=== PATIENT | female | born 1960 | race Caucasian/White ===

== ENCOUNTER 2017-01-22 03:52 | Inpatient (IN) | payer OTHER ==
[~2017-01-22] VITALS: Ht 177.8 cm; Wt 61.2 kg
[~2017-01-22 03:52] MED LIST: ACID CONTROL150 MG PO; CENTRUM WOMEN1 EACH PO; NICODERM CQ1 EAC2 TD
[2017-01-22 06:13] VITALS: BP 168/89
[2017-01-22 12:11] VITALS: BP 142/76
[2017-01-22 16:00] VITALS: BP 116/72
[2017-01-22 20:00] VITALS: BP 135/65
[2017-01-22 23:25] VITALS: BP 168/79
[2017-01-23 04:05] VITALS: BP 166/75
[2017-01-23 06:57] LABS: HEMATOCRIT 39.2 % (36.0-46.0); MCH 32.4 PG (29.0-34.0); MCHC 34.2 G/DL (30.0-36.0); MCV 94.9 FL (83-99); MEAN PLAT.VOLUME 9.7 uM^3 (9.5-12.4); PLATELET COUNT 229 K/uL (156-360); RBC DIS.WIDTH-CV 11.9 % (11.8-14.6); RBC DIS.WIDTH-SD 41.4 % (39-53); RED BLOOD COUNT 4.13 M/uL (3.80-5.20); WHITE BLOOD COUNT 8.3 K/uL (4.1-10.2)
[2017-01-23 07:21] LABS: ANION GAP 7 MEQ/L (2-14); CHLORIDE 106 MEQ/L (99-109); GFR ESTIMATE (CALCULATED) > 59 mL/min/; GLUCOSE 95 mg/dL (70-99); POTASSIUM 4.1 MEQ/L (3.7-5.4); SAMPLE HEMOLYSIS CHECK 0; SAMPLE ICTERIC CHECK 0; SAMPLE LIPEMIA CHECK 0; SODIUM 140 MEQ/L (136-147); UREA NITROGEN (BUN) 8 mg/dL (9-23)
[2017-01-23 07:40] VITALS: BP 154/76
[2017-01-23] MEDS ORDERED: TRAMADOL HCL50 MG PO (09:58)
== END 2017-01-23 10:32 | disposition home or self-care (01) | DRG 746 ==
LOC: ENRESERV 03:52 → 2SOUTH 05:19 → 2EAST 05:19 → 2SOUTH 09:15 → ENRESERV 11:39 → 2EAST 12:10 → 2SOUTH 12:28 → 2EAST 01-23 10:32
PROVIDERS: Obstetrics & Gynecology Gynecologic Oncology
DX: C51.8 Malignant neoplasm of overlapping sites of vulva (principal); C78.5 Secondary malignant neoplasm of large intestine and rectum; Z85.41 Personal history of malignant neoplasm of cervix uteri; Z80.1 Family history of malignant neoplasm of trachea, bronchus and lung; Z80.3 Family history of malignant neoplasm of breast
CPT/HCPCS: 36415; 80048; 85027; 86850; 86900; 86901; 86920; 88307; J0690; J1885; J2250; J2405; J3010; J7120; Q0175

== ENCOUNTER 2017-04-14 09:57 | Day surgery (SDC) | payer OTHER ==
[~2017-04-14] VITALS: Ht 175.3 cm; Wt 62.1 kg
[~2017-04-14 09:57] MED LIST changes: +DECADRON4 MG PO; +LORAZEPAM0.5 MG PO; +TRAMADOL HCL50 MG PO; +ZOFRAN4 MG PO
== END 2017-04-14 12:14 | disposition home or self-care (01) ==
LOC: CATH 09:57
DX: Z45.2 Encounter for adjustment and management of vascular access device (principal); I87.8 Other specified disorders of veins; C50.912 Malignant neoplasm of unspecified site of left female breast
CPT/HCPCS: C1752; C1894; J0690; J1644; J2250; J3010; S0020

== ENCOUNTER → 2017-10-07 | Outpatient (CLI) | payer OTHER ==
[~2017-10-07] MED LIST changes: +CLARITIN10 MG PO; +COLACE CLEAR50 MG PO; +COMPAZINE10 MG PO; +K-DUR20 MEQ PO; +PROBIOTIC1 EAC4 PO; +PROMETHAZINE HC25 M1 PO; +ROXICODONE5 MG PO; +ZOFRAN ODT4 MG PO
== END | disposition home or self-care (01) ==
LOC: CDC 08:46
DX: Z01.810 Encounter for preprocedural cardiovascular examination (principal); C50.812 Malignant neoplasm of overlapping sites of left female breast; I44.0 Atrioventricular block, first degree
CPT/HCPCS: 93000